=== PATIENT | female | born 1970 | race Caucasian/White ===

== ENCOUNTER 2019-09-30 11:33 | Outpatient (CLI) | payer MEDICARE, MEDICAID, SELFPAY ==
[2019-09-30 12:44] LABS: Basophils % 0.6 %; Eosinophils # 0.3 10^3/uL (0.0-0.8); Eosinophils % 3.9 %; Hematocrit 37.6 % (37.0-47.0); Hemoglobin 12.6 g/dL (11.5-15.3); Lymphocytes # 2.1 10^3/uL (0.8-4.8); Lymphocytes % 29.6 %; Mean Corpuscular HGB Conc 33.5 g/dL (30.0-36.0); Mean Corpuscular Hemoglobin 31.1 pg (28.0-34.0); Mean Corpuscular Volume 92.8 fL (81-99); Mean Platelet Volume 10.4 fL (7.4-10.4); Monocytes # 0.7 10^3/uL (0.2-0.9); Monocytes % 9.7 %; Neutrophils % 55.9 %; Nucleated Red Blood Cells % 0 %; Platelet Count 288 10^3/cmm (130-400); Red Blood Count 4.05 10^6/uL (4.1-5.3); Red Cell Distribution Width 12.7 % (12.1-15.1); White Blood Count 7.1 10^3/uL (4.0-10.0)
[2019-09-30 13:12] LABS: Alanine Aminotransferase 54 U/L (0-33); Albumin Level 4.3 g/dL (3.5-5.2); Alkaline Phosphatase 125 IU/L (35-105); Anion Gap 17.1 (5-19); Aspartate Amino Transferase 28 U/L (0-32); Blood Urea Nitrogen 10 mg/dL (6-20); C Reactive Protein 11.3 mg/L (0.0-4.9); Calcium 9.5 mg/dL (8.5-10.5); Carbon Dioxide 26 mmol/L (22-29); Chloride 103 mmol/L (98-107); Globulin 3.2 g/dL (1.3-4.6); Glomerular Filtration Rate 76.9 mL/min (90-130); Glucose 100 mg/dL (74-109); Potassium 4.1 mmol/L (3.5-5.1); Sodium 142 mmol/L (136-145); Total Bilirubin 0.2 mg/dL (0.15-1.2); Total Protein 7.5 g/dL (6.6-8.7); Vancomycin Trough 12.1 ug/mL (10-15)
[2019-09-30 14:33] LABS: Erythrocyte Sedimentation Rate 56 mm/hr (0-15)
== END 2019-09-30 11:34 | disposition home or self-care (01) ==
LOC: LAB 11:47
PROVIDERS: PCP Student in an Organized Health Care Education/Training Program; Visit Provider Internal Medicine Infectious Disease
DX: M86.172 Other acute osteomyelitis, left ankle and foot (principal); Z89.412 Acquired absence of left great toe
CPT/HCPCS: 80053; 80202; 85025; 85651; 86140

== ENCOUNTER 2019-10-08 18:31 | Outpatient (REF) | payer MEDICARE, MEDICAID, SELFPAY ==
[2019-10-08 19:12] LABS: Basophils % 0.4 %; Eosinophils # 0.3 10^3/uL (0.0-0.8); Eosinophils % 3.4 %; Hematocrit 41.3 % (37.0-47.0); Hemoglobin 13.8 g/dL (11.5-15.3); Lymphocytes % 26.4 %; Mean Corpuscular HGB Conc 33.4 g/dL (30.0-36.0); Mean Corpuscular Hemoglobin 31.3 pg (28.0-34.0); Mean Corpuscular Volume 93.7 fL (81-99); Mean Platelet Volume 10.4 fL (7.4-10.4); Monocytes # 0.6 10^3/uL (0.2-0.9); Neutrophils # 4.6 10^3/uL (1.8-7.7); Neutrophils % 61.4 %; Nucleated Red Blood Cells % 0 %; Platelet Count 379 10^3/cmm (130-400); Red Blood Count 4.41 10^6/uL (4.1-5.3); Red Cell Distribution Width 12.4 % (12.1-15.1); White Blood Count 7.5 10^3/uL (4.0-10.0)
[2019-10-08 19:54] LABS: Alanine Aminotransferase 27 U/L (0-33); Albumin Level 4.2 g/dL (3.5-5.2); Alkaline Phosphatase 112 IU/L (35-105); Anion Gap 18.7 (5-19); Aspartate Amino Transferase 23 U/L (0-32); Blood Urea Nitrogen 14 mg/dL (6-20); C Reactive Protein 23.3 mg/L (0.0-4.9); Calcium 9.5 mg/dL (8.5-10.5); Carbon Dioxide 24 mmol/L (22-29); Chloride 101 mmol/L (98-107); Globulin 3.3 g/dL (1.3-4.6); Glomerular Filtration Rate 76.9 mL/min (90-130); Potassium 4.7 mmol/L (3.5-5.1); Sodium 139 mmol/L (136-145); Total Bilirubin 0.2 mg/dL (0.15-1.2); Total Protein 7.5 g/dL (6.6-8.7); Vancomycin Trough 15.8 ug/mL (10-15)
[2019-10-08 20:31] LABS: Erythrocyte Sedimentation Rate 69 mm/hr (0-15)
[2019-10-09 09:06] LABS: Glucose 86 mg/dL (65-115)
== END 2019-10-08 18:32 | disposition home or self-care (01) ==
LOC: LAB 18:31
PROVIDERS: PCP Student in an Organized Health Care Education/Training Program; Visit Provider Specialist
DX: Z01.89 Encounter for other specified special examinations (principal)
CPT/HCPCS: 80053; 80202; 85025; 85651; 86140

== ENCOUNTER 2020-05-12 09:06 | Outpatient (CLI) | payer MEDICARE, MEDICAID, SELFPAY | END 2020-05-12 09:07 | disposition home or self-care (01) | LOC: WOUND 09:09 | PROVIDERS: PCP Student in an Organized Health Care Education/Training Program; Visit Provider Thoracic Surgery (Cardiothoracic Vascular Surgery) | DX: L98.498 Non-pressure chronic ulcer of skin of other sites with other specified severity (principal) | CPT/HCPCS: 11042 ==

== ENCOUNTER 2020-05-19 08:49 | Outpatient (CLI) | payer MEDICARE, MEDICAID, SELFPAY | END 2020-05-19 08:50 | disposition home or self-care (01) | LOC: WOUND 08:50 | PROVIDERS: PCP Student in an Organized Health Care Education/Training Program; Visit Provider Thoracic Surgery (Cardiothoracic Vascular Surgery) | DX: L98.491 Non-pressure chronic ulcer of skin of other sites limited to breakdown of skin (principal) | CPT/HCPCS: 11042 ==

== ENCOUNTER 2020-05-26 08:49 | Outpatient (CLI) | payer MEDICARE, MEDICAID, SELFPAY | END 2020-05-26 08:50 | disposition home or self-care (01) | LOC: WOUND 08:49 | PROVIDERS: PCP Student in an Organized Health Care Education/Training Program; Visit Provider Thoracic Surgery (Cardiothoracic Vascular Surgery) | DX: L98.491 Non-pressure chronic ulcer of skin of other sites limited to breakdown of skin (principal) | CPT/HCPCS: 11042 ==

== ENCOUNTER 2020-06-02 08:28 | Outpatient (CLI) | payer MEDICARE, MEDICAID, SELFPAY | END 2020-06-02 08:29 | disposition home or self-care (01) | LOC: WOUND 08:29 | PROVIDERS: PCP Student in an Organized Health Care Education/Training Program; Visit Provider Thoracic Surgery (Cardiothoracic Vascular Surgery) | DX: L98.492 Non-pressure chronic ulcer of skin of other sites with fat layer exposed (principal) | CPT/HCPCS: 11042 ==

== ENCOUNTER 2020-06-09 09:02 | Outpatient (CLI) | payer MEDICARE, MEDICAID, SELFPAY | END 2020-06-09 09:03 | disposition home or self-care (01) | LOC: WOUND 09:03 | PROVIDERS: PCP Student in an Organized Health Care Education/Training Program; Visit Provider Thoracic Surgery (Cardiothoracic Vascular Surgery) | DX: Z09 Encounter for follow-up examination after completed treatment for conditions other than malignant neoplasm (principal) | CPT/HCPCS: 99212 ==

== ENCOUNTER 2020-08-20 13:19 | Outpatient (CLI) | payer MEDICARE, MEDICAID, SELFPAY | END 2020-08-20 13:20 | disposition home or self-care (01) | LOC: WOUND 13:20 | PROVIDERS: PCP Student in an Organized Health Care Education/Training Program; Visit Provider Thoracic Surgery (Cardiothoracic Vascular Surgery) | DX: L98.498 Non-pressure chronic ulcer of skin of other sites with other specified severity (principal) | CPT/HCPCS: 11042; 99212 ==

== ENCOUNTER 2020-09-03 13:12 | Outpatient (CLI) | payer MEDICARE, MEDICAID, SELFPAY | END 2020-09-03 13:13 | disposition home or self-care (01) | LOC: WOUND 13:12 | PROVIDERS: PCP Student in an Organized Health Care Education/Training Program; Visit Provider Nurse Practitioner Family | DX: I73.9 Peripheral vascular disease, unspecified (principal); L98.492 Non-pressure chronic ulcer of skin of other sites with fat layer exposed | CPT/HCPCS: 11042 ==

== ENCOUNTER 2020-09-10 13:35 | Outpatient (CLI) | payer MEDICARE, MEDICAID, SELFPAY | END 2020-09-10 13:36 | disposition home or self-care (01) | LOC: WOUND 13:35 | PROVIDERS: PCP Student in an Organized Health Care Education/Training Program; Visit Provider Nurse Practitioner Family | DX: I73.9 Peripheral vascular disease, unspecified (principal); L98.492 Non-pressure chronic ulcer of skin of other sites with fat layer exposed | CPT/HCPCS: 99212 ==

== ENCOUNTER 2021-01-29 09:55 | Outpatient (CLI) | payer MEDICARE, MEDICAID, SELFPAY | END 2021-01-29 09:56 | disposition home or self-care (01) | LOC: WOUND 09:56 | PROVIDERS: PCP Student in an Organized Health Care Education/Training Program; Visit Provider Surgery | DX: Z09 Encounter for follow-up examination after completed treatment for conditions other than malignant neoplasm (principal); Z89.022 Acquired absence of left finger(s); Z89.021 Acquired absence of right finger(s) | CPT/HCPCS: G0463 ==

== ENCOUNTER → 2022-04-26 08:28 | Outpatient (BNVA) | payer MEDICARE, MEDICAID, SELFPAY | PROVIDERS: PCP Student in an Organized Health Care Education/Training Program; Visit Provider Nurse Practitioner Family | DX: L98.499 Non-pressure chronic ulcer of skin of other sites with unspecified severity (principal); M34.9 Systemic sclerosis, unspecified; I96 Gangrene, not elsewhere classified | CPT/HCPCS: 11042; 99213 ==

== ENCOUNTER → 2022-05-05 08:40 | Outpatient (BNVA) | payer MEDICARE, MEDICAID, SELFPAY | PROVIDERS: PCP Student in an Organized Health Care Education/Training Program; Visit Provider Nurse Practitioner Family | DX: L98.492 Non-pressure chronic ulcer of skin of other sites with fat layer exposed (principal) | CPT/HCPCS: 99212 ==

== ENCOUNTER → 2022-06-13 08:13 | Outpatient (BNVA) | payer MEDICARE, MEDICAID, SELFPAY | PROVIDERS: PCP Student in an Organized Health Care Education/Training Program; Visit Provider Thoracic Surgery (Cardiothoracic Vascular Surgery) | DX: I73.9 Peripheral vascular disease, unspecified (principal); L97.512 Non-pressure chronic ulcer of other part of right foot with fat layer exposed; M86.9 Osteomyelitis, unspecified; M06.9 Rheumatoid arthritis, unspecified | CPT/HCPCS: 97597; 99213; A6021 ==

== ENCOUNTER → 2022-06-20 08:59 | Outpatient (BNVA) | payer MEDICARE, MEDICAID, SELFPAY | PROVIDERS: PCP Student in an Organized Health Care Education/Training Program; Visit Provider Nurse Practitioner Family | DX: I73.9 Peripheral vascular disease, unspecified (principal); L97.512 Non-pressure chronic ulcer of other part of right foot with fat layer exposed; G62.9 Polyneuropathy, unspecified; I73.00 Raynaud's syndrome without gangrene | CPT/HCPCS: 11042; A6021 ==

== ENCOUNTER → 2022-06-27 09:09 | Outpatient (BNVA) | payer MEDICARE, MEDICAID, SELFPAY | PROVIDERS: PCP Student in an Organized Health Care Education/Training Program; Visit Provider Thoracic Surgery (Cardiothoracic Vascular Surgery) | DX: I73.9 Peripheral vascular disease, unspecified (principal); L97.512 Non-pressure chronic ulcer of other part of right foot with fat layer exposed; G62.9 Polyneuropathy, unspecified; I73.00 Raynaud's syndrome without gangrene | CPT/HCPCS: 97597; A6021 ==

== ENCOUNTER → 2022-07-04 09:26 | Outpatient (BNVA) | payer MEDICARE, MEDICAID, SELFPAY | PROVIDERS: PCP Student in an Organized Health Care Education/Training Program; Visit Provider Thoracic Surgery (Cardiothoracic Vascular Surgery) | DX: M34.9 Systemic sclerosis, unspecified (principal); L98.492 Non-pressure chronic ulcer of skin of other sites with fat layer exposed | CPT/HCPCS: 11043; 97597; A6021 ==

== ENCOUNTER → 2022-07-11 09:10 | Outpatient (BNVA) | payer MEDICARE, MEDICAID, SELFPAY | PROVIDERS: PCP Student in an Organized Health Care Education/Training Program; Visit Provider Thoracic Surgery (Cardiothoracic Vascular Surgery) | DX: M34.9 Systemic sclerosis, unspecified (principal); L98.492 Non-pressure chronic ulcer of skin of other sites with fat layer exposed | CPT/HCPCS: 11042; 97597; A6021 ==

== ENCOUNTER → 2022-07-18 09:30 | Outpatient (BNVA) | payer MEDICARE, MEDICAID, SELFPAY | PROVIDERS: PCP Student in an Organized Health Care Education/Training Program; Visit Provider Thoracic Surgery (Cardiothoracic Vascular Surgery) | DX: I96 Gangrene, not elsewhere classified (principal); M34.89 Other systemic sclerosis; L98.492 Non-pressure chronic ulcer of skin of other sites with fat layer exposed | CPT/HCPCS: 97597 ==

== ENCOUNTER → 2022-07-25 08:54 | Outpatient (BNVA) | payer MEDICARE, MEDICAID, SELFPAY | PROVIDERS: PCP Student in an Organized Health Care Education/Training Program; Visit Provider Nurse Practitioner Family | DX: M34.9 Systemic sclerosis, unspecified (principal); L98.492 Non-pressure chronic ulcer of skin of other sites with fat layer exposed | CPT/HCPCS: 11042; A6021 ==

== ENCOUNTER → 2022-08-01 09:16 | Outpatient (BNVA) | payer MEDICARE, MEDICAID, SELFPAY | PROVIDERS: PCP Student in an Organized Health Care Education/Training Program; Visit Provider Nurse Practitioner Family | DX: I96 Gangrene, not elsewhere classified (principal); L98.492 Non-pressure chronic ulcer of skin of other sites with fat layer exposed; M34.89 Other systemic sclerosis | CPT/HCPCS: 11042 ==

== ENCOUNTER 2022-08-08 13:52 | Outpatient (CLI) | payer MEDICARE, MEDICAID, SELFPAY ==
--- NOTE | 2022-08-08 14:06 | XR_ITS ---
WS: [id number] EXAMINATION: XR hand LT min 3V* [id number] REASON FOR EXAM: S61.409D - Unspecified open wound of unspecified hand, lorenz... COMPARISON: None available. ORDER DATE: 08/08/2022 2:07 PM FINDINGS/IMPRESSION: There is amputation at the level of the proximal fifth metacarpal with normal appearance of the corti suhail surface of the remaining small segment of fifth metacarpal. There is patchy sclerotic pattern in the lunate which suggests possible osteonecrosis, Kienbock's dis ease.. There are no specific soft tissue abnormalities.
== END 2022-08-08 13:53 | disposition home or self-care (01) ==
LOC: RAD 13:57
PROVIDERS: PCP Family Medicine; Visit Provider Nurse Practitioner Family
DX: S61.402D Unspecified open wound of left hand, subsequent encounter (principal); L94.0 Localized scleroderma [morphea]; I96 Gangrene, not elsewhere classified; L98.492 Non-pressure chronic ulcer of skin of other sites with fat layer exposed; Z89.012 Acquired absence of left thumb; X58.XXXD Exposure to other specified factors, subsequent encounter
CPT/HCPCS: 73130; 99213

== ENCOUNTER → 2022-08-15 09:44 | Outpatient (BNVA) | payer MEDICARE, MEDICAID, SELFPAY | PROVIDERS: PCP Family Medicine; Visit Provider Nurse Practitioner Family | DX: M34.9 Systemic sclerosis, unspecified (principal); I96 Gangrene, not elsewhere classified; L98.492 Non-pressure chronic ulcer of skin of other sites with fat layer exposed | CPT/HCPCS: 11042 ==

== ENCOUNTER → 2022-08-22 09:31 | Outpatient (BNVA) | payer MEDICARE, MEDICAID, SELFPAY | PROVIDERS: PCP Family Medicine; Visit Provider Thoracic Surgery (Cardiothoracic Vascular Surgery) | DX: M34.9 Systemic sclerosis, unspecified (principal); L98.492 Non-pressure chronic ulcer of skin of other sites with fat layer exposed | CPT/HCPCS: 97597 ==

== ENCOUNTER → 2022-09-06 09:21 | Outpatient (BNVA) | payer MEDICARE, MEDICAID, SELFPAY | PROVIDERS: PCP Family Medicine; Visit Provider Thoracic Surgery (Cardiothoracic Vascular Surgery) | DX: M34.9 Systemic sclerosis, unspecified (principal); L98.492 Non-pressure chronic ulcer of skin of other sites with fat layer exposed | CPT/HCPCS: 97597 ==

== ENCOUNTER → 2022-09-14 08:57 | Outpatient (BNVA) | payer MEDICARE, MEDICAID, SELFPAY | PROVIDERS: PCP Family Medicine; Visit Provider Thoracic Surgery (Cardiothoracic Vascular Surgery) | DX: Z09 Encounter for follow-up examination after completed treatment for conditions other than malignant neoplasm (principal) | CPT/HCPCS: 99212 ==

== ENCOUNTER → 2023-03-08 09:03 | Outpatient (BNVA) | payer MEDICARE, MEDICAID, SELFPAY | PROVIDERS: PCP Family Medicine; Visit Provider Thoracic Surgery (Cardiothoracic Vascular Surgery) | DX: I96 Gangrene, not elsewhere classified (principal); L94.0 Localized scleroderma [morphea]; L98.492 Non-pressure chronic ulcer of skin of other sites with fat layer exposed | CPT/HCPCS: 11042; 87070; 87077; 87186; 99213 ==

== ENCOUNTER → 2023-03-15 08:57 | Outpatient (BNVA) | payer MEDICARE, MEDICAID, SELFPAY | PROVIDERS: PCP Family Medicine; Visit Provider Thoracic Surgery (Cardiothoracic Vascular Surgery) | DX: T81.31XD Disruption of external operation (surgical) wound, not elsewhere classified, subsequent encounter (principal); Y83.8 Other surgical procedures as the cause of abnormal reaction of the patient, or of later complication, without mention of misadventure at the time of the procedure | CPT/HCPCS: 11042 ==

== ENCOUNTER → 2023-03-22 08:38 | Outpatient (BNVA) | payer MEDICARE, MEDICAID, SELFPAY | PROVIDERS: PCP Family Medicine; Visit Provider Thoracic Surgery (Cardiothoracic Vascular Surgery) | DX: I96 Gangrene, not elsewhere classified (principal); M34.89 Other systemic sclerosis; T81.31XD Disruption of external operation (surgical) wound, not elsewhere classified, subsequent encounter; Y83.8 Other surgical procedures as the cause of abnormal reaction of the patient, or of later complication, without mention of misadventure at the time of the procedure | CPT/HCPCS: 97597 ==

== ENCOUNTER → 2023-08-11 09:02 | Outpatient (BNVA) | payer MEDICARE, MEDICAID, SELFPAY | PROVIDERS: PCP Family Medicine; Visit Provider Thoracic Surgery (Cardiothoracic Vascular Surgery) | DX: I96 Gangrene, not elsewhere classified (principal); L94.0 Localized scleroderma [morphea] | CPT/HCPCS: 97597; 99213; A6248 ==

== ENCOUNTER → 2023-09-08 14:52 | Outpatient (BNVA) | payer MEDICARE, MEDICAID, SELFPAY | PROVIDERS: PCP Family Medicine; Visit Provider Thoracic Surgery (Cardiothoracic Vascular Surgery) | DX: M34.9 Systemic sclerosis, unspecified (principal); I96 Gangrene, not elsewhere classified; L98.492 Non-pressure chronic ulcer of skin of other sites with fat layer exposed | CPT/HCPCS: 11042; A6021 ==

== ENCOUNTER → 2023-09-22 08:00 | Outpatient (BNVA) | payer MEDICARE, MEDICAID, SELFPAY | PROVIDERS: PCP Family Medicine; Visit Provider Thoracic Surgery (Cardiothoracic Vascular Surgery) | DX: I96 Gangrene, not elsewhere classified (principal); M34.89 Other systemic sclerosis | CPT/HCPCS: 11042 ==

== ENCOUNTER → 2023-10-06 08:06 | Outpatient (BNVA) | payer MEDICARE, MEDICAID, SELFPAY | PROVIDERS: PCP Family Medicine; Visit Provider Thoracic Surgery (Cardiothoracic Vascular Surgery) | DX: I96 Gangrene, not elsewhere classified (principal); L94.0 Localized scleroderma [morphea] | CPT/HCPCS: 11042 ==

== ENCOUNTER → 2023-10-13 07:59 | Outpatient (BNVA) | payer MEDICARE, MEDICAID, SELFPAY | PROVIDERS: PCP Family Medicine; Visit Provider Thoracic Surgery (Cardiothoracic Vascular Surgery) | DX: I96 Gangrene, not elsewhere classified (principal); M34.9 Systemic sclerosis, unspecified | CPT/HCPCS: 97597 ==

== ENCOUNTER 2023-11-23 06:00 | Outpatient (CLI) | payer MEDICARE, MEDICAID, SELFPAY | END 2023-11-23 23:59 | disposition home or self-care (01) | LOC: SOT 11-24 07:55 | PROVIDERS: PCP Family Medicine; Visit Provider Student in an Organized Health Care Education/Training Program | DX: Z46.89 Encounter for fitting and adjustment of other specified devices (principal); L98.492 Non-pressure chronic ulcer of skin of other sites with fat layer exposed | CPT/HCPCS: 97597; 97760; 99213; A6021; A6248; A6446; L3923 ==

== ENCOUNTER → 2023-11-30 07:59 | Outpatient (BNVA) | payer MEDICARE, MEDICAID, SELFPAY | PROVIDERS: PCP Family Medicine; Visit Provider Thoracic Surgery (Cardiothoracic Vascular Surgery) | DX: T81.31XD Disruption of external operation (surgical) wound, not elsewhere classified, subsequent encounter (principal); Y83.8 Other surgical procedures as the cause of abnormal reaction of the patient, or of later complication, without mention of misadventure at the time of the procedure | CPT/HCPCS: 97597; A6021 ==

== ENCOUNTER → 2023-12-07 08:42 | Outpatient (BNVA) | payer MEDICARE, MEDICAID, SELFPAY | PROVIDERS: PCP Family Medicine; Visit Provider Thoracic Surgery (Cardiothoracic Vascular Surgery) | DX: I96 Gangrene, not elsewhere classified (principal); T81.31XD Disruption of external operation (surgical) wound, not elsewhere classified, subsequent encounter; Y83.8 Other surgical procedures as the cause of abnormal reaction of the patient, or of later complication, without mention of misadventure at the time of the procedure | CPT/HCPCS: 97597 ==

== ENCOUNTER → 2023-12-14 09:55 | Outpatient (BNVA) | payer MEDICARE, MEDICAID, SELFPAY | PROVIDERS: PCP Family Medicine; Visit Provider Thoracic Surgery (Cardiothoracic Vascular Surgery) | DX: I96 Gangrene, not elsewhere classified (principal); T81.31XD Disruption of external operation (surgical) wound, not elsewhere classified, subsequent encounter; Y83.8 Other surgical procedures as the cause of abnormal reaction of the patient, or of later complication, without mention of misadventure at the time of the procedure | CPT/HCPCS: 97597; A6021 ==

== ENCOUNTER 2024-01-18 09:27 | Outpatient (RCR) | payer MEDICARE, MEDICAID, SELFPAY | END 2024-02-02 23:59 | disposition home or self-care (01) | LOC: SOT 09:27 | PROVIDERS: Visit Provider Physician Assistant | DX: Z47.81 Encounter for orthopedic aftercare following surgical amputation (principal); Z89.021 Acquired absence of right finger(s) | CPT/HCPCS: 97022; 97110; 97140; 97165; 97530 ==

== ENCOUNTER 2024-02-03 06:00 | Outpatient (RCR) | payer MEDICARE, MEDICAID, SELFPAY | END 2024-03-03 23:59 | disposition home or self-care (01) | LOC: SOT 06:00 | PROVIDERS: PCP Internal Medicine; Visit Provider Physician Assistant | DX: M86.641 Other chronic osteomyelitis, right hand (principal) | CPT/HCPCS: 97022; 97110; 97140 ==

== ENCOUNTER 2024-02-08 09:47 | Outpatient (CLI) | payer MEDICARE, MEDICAID, SELFPAY ==
--- NOTE | 2024-02-08 09:53 | XR_ITS ---
WS: [id number] XR hand LT 2V [id number] REASON FOR EXAM: raynaud's dz. hx of osteomyelitis FINDINGS: Amputation of the distal most distal phalanx of the thumb and index finger. Amputation of the distal middle finger at the level of the base of the proximal phalanx. Amputation of the fifth finger at the level of the base of the metacarpal. There is mild narrowing with subchondral sclerosis in the 3 joints of the thumb. There is sclerosis and cystic change in the lunate. The left hand is unchanged compared to 08/08/2022. XR/XR hand LT 2V [id number] IMPRESSION: Stable left hand with multiple previous amputations. 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 Stable abnormal lunate.
== END 2024-02-08 09:48 | disposition home or self-care (01) ==
LOC: RAD 09:49
PROVIDERS: PCP Internal Medicine; Visit Provider Thoracic Surgery (Cardiothoracic Vascular Surgery)
DX: I73.00 Raynaud's syndrome without gangrene (principal); Z89.012 Acquired absence of left thumb; Z89.022 Acquired absence of left finger(s); M93.1 Kienbock's disease of adults; M85.60 Other cyst of bone, unspecified site
CPT/HCPCS: 73120; 99213

== ENCOUNTER 2024-05-15 08:49 | Outpatient (RCR) | payer MEDICARE, MEDICAID, SELFPAY | END 2024-06-03 23:59 | disposition home or self-care (01) | LOC: SOT 08:49 | PROVIDERS: Visit Provider Physician Assistant | DX: L03.012 Cellulitis of left finger (principal) | CPT/HCPCS: 97022; 97110; 97140; 97165; 97530 ==

== ENCOUNTER → 2024-05-22 13:00 | Outpatient (BNVA) | payer MEDICARE, MEDICAID, SELFPAY | PROVIDERS: Visit Provider Thoracic Surgery (Cardiothoracic Vascular Surgery) | DX: L98.491 Non-pressure chronic ulcer of skin of other sites limited to breakdown of skin (principal) | CPT/HCPCS: 97597; 99213; A6021 ==

== ENCOUNTER 2024-05-29 11:36 | Outpatient (CLI) | payer MEDICARE, MEDICAID, SELFPAY ==
--- NOTE | 2024-05-29 11:43 | XRR_ITS ---
PROCEDURE INFORMATION: Exam: XR Left Finger(s) Exam date and time: 05/29/2024 11:56 AM Age: 53 years old Clinical indication: Condition or disease; Other: Non healing ulcer; Prior surgery; Surgery date: 6+ months; Surgery type: 5th digit removed 2020; Additional info: Non-healing ulcer left hand 2nd digit(index), increased pain TECHNIQUE: Imaging protocol: Radiologic exam of the left fingers. Views: Minimum 2 views. COMPARISON: CR XR hand LT 2V [id number] 02/08/2024 10:05 AM FINDINGS: Bones/joints: The finger is in partial flexion which limits evaluation of the joint spaces. No evidence for osteomyelitis or other acute abnormality. Soft tissues: There is a soft tissue defect along the posterior margin of the index finger at the level of the PIP joint. No radiopaque foreign body. XR/XR finger LT min 2V [id number] IMPRESSION: No evidence for osteomyelitis. Soft tissue ulceration is seen at the PIP joint level dorsally.
--- NOTE | 2024-05-29 11:43 | XRR_ITS ---
PROCEDURE INFORMATION: Exam: XR Right Finger(s) Exam date and time: 05/29/2024 11:56 AM Age: 53 years old Clinical indication: Condition or disease; Other: Non healing ulcer; Additional info: Non-healing ulcer right first digit(thumb), bone exposure TECHNIQUE: Imaging protocol: Radiologic exam of the right fingers. Views: Minimum 2 views. COMPARISON: No relevant prior studies available. FINDINGS: Bones/joints: There is absence of the distal phalanx of the thumb. No evidence for osteomyelitis or other acute abnormality. Visualized joint spaces are unremarkable. Soft tissues: No radiopaque foreign body. XR/XR finger RT min 2V [id number] IMPRESSION: No acute findings.
== END 2024-05-29 11:37 | disposition home or self-care (01) ==
PROVIDERS: Visit Provider Thoracic Surgery (Cardiothoracic Vascular Surgery)
DX: S61.001A Unspecified open wound of right thumb without damage to nail, initial encounter (principal); S61.200A Unspecified open wound of right index finger without damage to nail, initial encounter; I73.00 Raynaud's syndrome without gangrene
CPT/HCPCS: 73140; 87070; 97597

== ENCOUNTER → 2024-06-07 07:52 | Outpatient (BNVA) | payer MEDICARE, MEDICAID, SELFPAY | PROVIDERS: Visit Provider Thoracic Surgery (Cardiothoracic Vascular Surgery) | DX: S61.001D Unspecified open wound of right thumb without damage to nail, subsequent encounter; S61.201D Unspecified open wound of left index finger without damage to nail, subsequent encounter; S91.105D Unspecified open wound of left lesser toe(s) without damage to nail, subsequent encounter; X58.XXXD Exposure to other specified factors, subsequent encounter; I73.01 Raynaud's syndrome with gangrene | CPT/HCPCS: 97597 ==

== ENCOUNTER → 2024-06-14 08:13 | Outpatient (BNVA) | payer MEDICARE, MEDICAID, SELFPAY | PROVIDERS: Visit Provider Thoracic Surgery (Cardiothoracic Vascular Surgery) | DX: I96 Gangrene, not elsewhere classified (principal); L94.0 Localized scleroderma [morphea]; L98.491 Non-pressure chronic ulcer of skin of other sites limited to breakdown of skin; L97.521 Non-pressure chronic ulcer of other part of left foot limited to breakdown of skin | CPT/HCPCS: 97597; A6021; A6248 ==

== ENCOUNTER → 2024-06-18 13:10 | Outpatient (BNVA) | payer MEDICARE, MEDICAID, SELFPAY | PROVIDERS: Visit Provider Thoracic Surgery (Cardiothoracic Vascular Surgery) | DX: I96 Gangrene, not elsewhere classified (principal); L94.0 Localized scleroderma [morphea]; L97.521 Non-pressure chronic ulcer of other part of left foot limited to breakdown of skin; L98.491 Non-pressure chronic ulcer of skin of other sites limited to breakdown of skin | CPT/HCPCS: 97597; A6021 ==

== ENCOUNTER → 2024-06-28 08:00 | Outpatient (BNVA) | payer MEDICARE, MEDICAID, SELFPAY | PROVIDERS: Visit Provider Thoracic Surgery (Cardiothoracic Vascular Surgery) | DX: I96 Gangrene, not elsewhere classified (principal); L94.0 Localized scleroderma [morphea]; L98.491 Non-pressure chronic ulcer of skin of other sites limited to breakdown of skin; L97.521 Non-pressure chronic ulcer of other part of left foot limited to breakdown of skin | CPT/HCPCS: 97597 ==

== ENCOUNTER → 2024-07-05 08:00 | Outpatient (BNVA) | payer MEDICARE, MEDICAID, SELFPAY | PROVIDERS: Visit Provider Thoracic Surgery (Cardiothoracic Vascular Surgery) | DX: I96 Gangrene, not elsewhere classified (principal); L94.0 Localized scleroderma [morphea]; L98.491 Non-pressure chronic ulcer of skin of other sites limited to breakdown of skin; L97.521 Non-pressure chronic ulcer of other part of left foot limited to breakdown of skin; L84 Corns and callosities | CPT/HCPCS: 11055; 97597 ==

== ENCOUNTER → 2024-07-10 10:35 | Outpatient (BNVA) | payer MEDICARE, MEDICAID, SELFPAY | PROVIDERS: Visit Provider Podiatrist Foot & Ankle Surgery | DX: M79.672 Pain in left foot (principal); M86.172 Other acute osteomyelitis, left ankle and foot; I73.00 Raynaud's syndrome without gangrene; M20.42 Other hammer toe(s) (acquired), left foot | CPT/HCPCS: 73630; 97597; 99204; A6248 ==

== ENCOUNTER 2024-07-15 07:26 | Day surgery (SDC) | payer MEDICARE, MEDICAID, SELFPAY ==
[2024-07-15] VITALS (7 sets, daily range): BP systolic 84–119; BP diastolic 60–80; PULSE 81–93; RESP 18–20; TEMP 36.9–37.1; O2SAT 93–98; BMI 25.0
[2024-07-15] MEDS: gabapentin 300 mg Capsule PO (08:10)
[2024-07-15] MEDS: acetaminophen 1,000 MG/100 ML PIGGYBACK 400 MG IV (09:02)
[2024-07-15] MEDS: sodium chloride 0.9% 1,000 ML 30 ML IV (09:06)
--- NOTE | 2024-07-15 09:08 | ANES.PREANE2 ---
Pre-Anesthetic Assessment Height/Weight: Height 5 ft 8 in Weight 165 lb Temp Pulse Resp BP Pulse Ox O2 Del Method 98.5 F 87 18 119/72 94 Room Air 07/15/24 07:48 07/15/24 07:48 07/15/24 07:48 07/15/24 07:48 07/15/24 07:48 07/15/24 07:48 Preop Diagnosis: Osteomyelitis Operation Date: 07/15/24 09:05 Proposed Procedures p Left foot second toe amputation(Left) - VISHNU MccormackM Was Beta Trinidad taken within 24 hours: N/A Was Clonidine taken within 24 hours: N/A Last intake: Intake Last Liquid Date 07/14/24 Last Liquid Time 23:59 Last Solid Date 07/14/24 Last Solid Time 19:30 Social No alcohol and No tobacco Exam alert, oriented x 3 and regular rate & rhythm Diminished breath sounds bilaterally Airway Submandibular: within normal limits Cervical ROM: within normal limits Mallampati: Class III Dentition: full Comments: Comments: Limited mouth opening Anesthetic Plan ASA status: 3 Anesthesia: MAC Other: No prior issues with anesthesia NPO since yesterday Patient has severe scleredema, multiple finger amputations Restrictive lung disease from her scleredema GERD on Protonix Chronic pain, takes chronic oxycodone daily Patient is able to perform ADLs Plan for MAC anesthetic with local via surgeon Medications/Allergies Home Medications Medication Instructions Recorded Confirmed Last Taken Type albuterol sulfate 90 mcg/actuation See Rx Instructions .Route 07/11/24 07/11/24 Unknown History aerosol inhaler .COMPLEX sob alprazolam 0.25 mg tablet 0.25 mg PO PRN 07/11/24 07/11/24 07/14/24 History brexpiprazole 2 mg tablet (Rexulti) 2 mg PO 1XD 07/11/24 07/11/24 07/15/24 History cilostazol 100 mg tablet 100 mg PO 2XD 07/11/24 07/11/24 07/15/24 History colestipol 1 gram tablet 1 g PO BID high cholesterol 07/11/24 07/11/24 07/11/24 History ergocalciferol (vitamin D2) 1,250 See Rx Instructions .Route 07/11/24 07/11/24 07/07/24 History mcg (50,000 unit) capsule (Vitamin .COMPLEX vit D2) famotidine 40 mg tablet 40 mg PO 2XD 07/11/24 07/11/24 07/15/24 History fluticasone furoate 200 See Rx Instructions .Route .COMPLEX 07/11/24 07/15/24 07/15/24 History mcg-vilanterol 25 mcg/dose inhalation powder (Breo Ellipta) gabapentin 300 mg capsule 300 mg PO QID 07/11/24 07/11/24 07/11/24 History mupirocin 2 % topical ointment 2 applic topical 3XD 07/11/24 07/11/24 07/11/24 History mycophenolate mofetil 500 mg tablet 1,500 mg PO 2XD 07/11/24 07/11/24 07/15/24 History nifedipine 60 mg tablet,extended 120 mg PO 1XD 07/11/24 07/11/24 07/10/24 History release 24 hr nintedanib 150 mg capsule (Ofev) 150 mg PO 2XD 07/11/24 07/11/24 07/11/24 History oxycodone 15 mg tablet 15 mg PO PRN 07/11/24 07/11/24 07/15/24 History oxycodone 20 mg tablet,crush 20 mg PO 2XD 07/11/24 07/11/24 07/14/24 History resistant,extended release 12 hr (OxyContin) pantoprazole 40 mg tablet,delayed 40 mg PO 2XD 07/11/24 07/11/24 07/15/24 History release paroxetine HCl 30 mg tablet 30 mg PO 1XD 07/11/24 07/11/24 07/15/24 History pentoxifylline 400 mg 400 mg PO 3XD 07/11/24 07/11/24 07/11/24 History tablet,extended release trazodone 50 mg tablet 100 mg PO 1XD 07/11/24 07/11/24 07/14/24 History Allergies Allergy/AdvReac Type Severity Reaction Status Date / Time ceftriaxone [From Rocephin] Allergy ALGY-Rash Verified 07/15/24 07:45 piperacillin [From Zosyn] Allergy ALGY-Rash Verified 07/15/24 07:45 tazobactam [From Zosyn] Allergy ALGY-Rash Verified 07/15/24 07:45 vancomycin Allergy ALGY-Rash Verified 07/15/24 07:45 Current Medications Generic Name Dose Route Start Last Admin Trade Name Johnq PRN Reason Stop Dose Admin Sodium Chloride 1,000 mls @ 30 mls/hr 07/15/24 07:45 07/15/24 09:06 Sodium Chloride 0.9% IV 07/16/24 07:44 30 mls/hr .Q24H LOUISE Administration PFSH Anesthesia Social History Smoking and tobacco/nicotine status: unknown if used tobacco/nicotine Data Anesthesia Cardiac Studies: No Data to Display
[2024-07-15] MEDS: clindamycin 600 MG/50 ML PREMIX 100 MG IV (10:11)
[2024-07-15] MEDS: BUPivacaine 0.5% INJ 10 mL 30 ML INJECTION (10:20)
--- NOTE | 2024-07-15 10:49 | P.BOP_ITS ---
Date of procedure: 07/15/2024 Surgeon name: Jey FrankPDianne Editor [employer](s) name(s): Freddy Procedure(s) performed: Left foot second digit amputation Description of findings: Osteomyelitis left second digit Estimated blood loss: 2 cc Tourniquet time: 10 minutes Specimen(s) removed: Left foot second toe Post-operative diagnosis: Osteomyelitis left foot second digit
--- NOTE | 2024-07-15 10:50 | P.OP_ITS ---
Operative Report Date of procedure: July 15, 2024 Surgeon: Vinay Soto DPM Procedure: Date of procedure: 07/15/2024 Pre-op diagnosis: Osteomyelitis left foot second digit Post-op diagnosis: Same Post-op findings: Osteomyelitis left second digit Procedure done: Left foot second digit amputation CPT 26596 Implants: None Specimens removed: Left foot second toe Surgeon: Dr. Vinay Soto DPM Jewish History Professor: ABDIRASHID Estimated blood loss: 2 cc Tourniquet time: 10 minutes Complications: None Patient is a 53-year-old female that has a history of left foot second toe osteomyelitis and chronic ulceration. The patient has had the aforementioned chief complaint for some time. Conservative treatment measures have been attempted and the patient has opted for surgical intervention at this time. A lengthy discussion regarding the procedure, including risks and complications has been had with the patient and is noted in the recent clinic note. Written and verbal consent have been obtained. All patient questions have been answered to the patient?s satisfaction. No written or verbal guarantees have been given or implied. The patient has been NPO since midnight. The history has been reviewed and the history and physical is current. The signed consent was confirmed and placed in the patient chart. Patient imaging has been reviewed and is consistent with the diagnosis. Under mild sedation, the patient was brought into the operating room and placed on the table in the supine position. IV antibiotics were given by the anesthesia team as preoperative surgical prophylaxis. IV sedation was then performed by the anesthesiateam. A pneumatic tourniquet was then placed about the left ankle. The operative extremity was then prepped and draped in the usual fashion. The extremity was then elevated and exsanguinated before the tourniquet was inflated to 250 mmHg. After inflation, the following procedure was then performed. Attention was directed to the left foot where a fishmouth incision was made at the base of the second toe. Dissection was carried out to the level of the second metatarsophalangeal joint. The second digit was dissected from the foot by releasing the second metatarsal phalangeal joint capsule. The toe was passed from the operative field be sent as specimen. The remaining tissue appeared healthy and viable in nature. The site was irrigated with copious amounts sterile saline before attention was directed to closure. Amputation site was closed with 4-0 nylon in simple interrupted fashion. Tourniquet was let down and good hyperemic response was noted to all remaining digits of the left foot. Incision site was dressed with Xeroform, 4 x 4 gauze, Kerlix, Marquise. The patient tolerated the procedure and anesthesia well and without complication. The patient was transported from the operating room to the recovery room with vital signs stable and vascular status intact to all digits of the left foot. The patient was given both written and verbal instructions to remain weightbearing as tolerated in postop shoe to the operative extremity, to keep dressings/splint clean, dry and intact and to take pain medication as directed. The patient will follow-up in the outpatient setting at their [facility] appointment. The patient was discharged with my personal number and was instructed to call if any questions or issues should arise. They were discharged home once anesthesia criteria was met.
--- NOTE | 2024-07-15 12:05 | ANE.PACU2 ---
Inpatient post-anesthesia follow up: Airway intact: Yes Vital signs: Temperature 98.8 F Pulse Rate 84 Respiratory Rate 18 Blood Pressure 105/61 Pulse Oximetry 96 Oxygen Delivery Me thod Room Air Oxygen Flow Rate Fraction of Inspir ed Oxygen Hydration adequate: Yes Nausea and vomiting: No Pain level: 1 Mental status: Baseline
== END 2024-07-15 12:05 | disposition home or self-care (01) ==
PROVIDERS: PCP Family Medicine; Visit Provider Podiatrist Foot & Ankle Surgery
PROC: (CPT 28820; principal; 2024-07-15 08:55)
DX: M86.8X7 Other osteomyelitis, ankle and foot (principal); K21.9 Gastro-esophageal reflux disease without esophagitis; G89.29 Other chronic pain; Z79.891 Long term (current) use of opiate analgesic
CPT/HCPCS: 28820; 88305; 88311; J0131; J2250; J2704; J3010; J3490; J7030

== ENCOUNTER → 2024-07-22 14:45 | Outpatient (BNVA) | payer MEDICARE, MEDICAID, SELFPAY | PROVIDERS: PCP Family Medicine; Visit Provider Podiatrist Foot & Ankle Surgery | DX: I73.00 Raynaud's syndrome without gangrene; M20.42 Other hammer toe(s) (acquired), left foot; M86.372 Chronic multifocal osteomyelitis, left ankle and foot | CPT/HCPCS: 99213 ==

== ENCOUNTER 2024-07-26 10:23 | Outpatient (CLI) | payer MEDICARE, MEDICAID, SELFPAY ==
--- NOTE | 2024-07-26 10:26 | XR_ITS ---
WS: [id number] Exam: XR hand RT min 3V* [id number] Date/Time of Exam: 07/26/2024 10:43 AM Reason For Exam: R/O osteomyelitis Right Hand Comparison 05/29/2024. No acute fracture or bone destruction identified. There are amputations involving the first through t he fourth rays of the hand. Almost complete amputation of the second ray at the level of the proximal metacarpal. No soft tissue foreign bodies are identified. IMPRESSION1. No sign of acute bone destruction or fracture. 2. Multiple amputations involving the first through the fourth rays of the RIGHT hand. 3. Bony sclerosis of the lunate of uncertain etiology.
--- NOTE | 2024-07-26 10:26 | XR_ITS ---
WS: [id number] Exam: XR elbow RT min 3V* [id number] Date/Time of Exam: 07/26/2024 10:43 AM Reason For Exam: R/O osteomyelitis Right Elbow No acute fracture or bone destruction identified. The joints are preserved. Soft tissue calcification along the radial head. No joint effusion. XR/XR elbow RT min 3V* [id number] IMPRESSION: 1. No fracture or bone destruction. No joint effusion.
== END 2024-07-26 10:24 | disposition home or self-care (01) ==
LOC: RAD 10:25
PROVIDERS: PCP Family Medicine; Visit Provider Thoracic Surgery (Cardiothoracic Vascular Surgery)
DX: M86.9 Osteomyelitis, unspecified (principal); Z89.021 Acquired absence of right finger(s); M93.1 Kienbock's disease of adults; L94.0 Localized scleroderma [morphea]; L98.491 Non-pressure chronic ulcer of skin of other sites limited to breakdown of skin
CPT/HCPCS: 73080; 73130; 87070; 87075; 87205; 97597

== ENCOUNTER → 2024-07-30 12:58 | Outpatient (BNVA) | payer MEDICARE, MEDICAID, SELFPAY | PROVIDERS: PCP Family Medicine; Visit Provider Thoracic Surgery (Cardiothoracic Vascular Surgery) | DX: I96 Gangrene, not elsewhere classified (principal); L94.0 Localized scleroderma [morphea]; L98.491 Non-pressure chronic ulcer of skin of other sites limited to breakdown of skin | CPT/HCPCS: 97597; 99213 ==

== ENCOUNTER → 2024-08-14 12:54 | Outpatient (BNVA) | payer MEDICARE, MEDICAID, SELFPAY | PROVIDERS: PCP Family Medicine; Visit Provider Thoracic Surgery (Cardiothoracic Vascular Surgery) | DX: L94.0 Localized scleroderma [morphea] (principal); I96 Gangrene, not elsewhere classified; L98.491 Non-pressure chronic ulcer of skin of other sites limited to breakdown of skin | CPT/HCPCS: 97597 ==

== ENCOUNTER → 2024-08-23 08:14 | Outpatient (BNVA) | payer MEDICARE, MEDICAID, SELFPAY | PROVIDERS: PCP Family Medicine; Visit Provider Thoracic Surgery (Cardiothoracic Vascular Surgery) | DX: I96 Gangrene, not elsewhere classified (principal); L94.0 Localized scleroderma [morphea]; L98.491 Non-pressure chronic ulcer of skin of other sites limited to breakdown of skin; L98.492 Non-pressure chronic ulcer of skin of other sites with fat layer exposed; Z09 Encounter for follow-up examination after completed treatment for conditions other than malignant neoplasm | CPT/HCPCS: 11042; 97597 ==

== ENCOUNTER 2024-08-30 10:24 | Outpatient (CLI) | payer MEDICARE, MEDICAID, SELFPAY ==
--- NOTE | 2024-08-30 10:26 | XR_ITS ---
WS: [id number] LEFT ELBOW: 3 VIEW(S) TECHNIQUE: AP, oblique and lateral. HISTORY: reopening of wound with hx. of osteomyelitis COMPARISON: None available. No acute fracture identified. Irregularity along the articular surface of the radial head consistent with an old fracture. Osteophyte along the medial ulna. Minimal distention of the anterior joint capsule. No bone destruction. No soft tissue abnormality. XR/XR elbow LT min 3V* [id number] IMPRESSION: 1. The soft tissue ulceration tract is not identified radiographically. 2. No destructive bone lesions. 3. Remote fracture radial head.
== END 2024-08-30 10:25 | disposition home or self-care (01) ==
LOC: RAD 10:25
PROVIDERS: PCP Family Medicine; Visit Provider Thoracic Surgery (Cardiothoracic Vascular Surgery)
DX: L89.023 Pressure ulcer of left elbow, stage 3 (principal); M25.722 Osteophyte, left elbow; S52.122D Displaced fracture of head of left radius, subsequent encounter for closed fracture with routine healing; X58.XXXD Exposure to other specified factors, subsequent encounter; M34.9 Systemic sclerosis, unspecified; L89.013 Pressure ulcer of right elbow, stage 3
CPT/HCPCS: 11042; 73080; 97597; A6021

== ENCOUNTER → 2024-09-06 08:07 | Outpatient (BNVA) | payer MEDICARE, MEDICAID, SELFPAY | PROVIDERS: PCP Family Medicine; Visit Provider Thoracic Surgery (Cardiothoracic Vascular Surgery) | DX: I96 Gangrene, not elsewhere classified (principal); L94.0 Localized scleroderma [morphea]; L98.491 Non-pressure chronic ulcer of skin of other sites limited to breakdown of skin; L89.013 Pressure ulcer of right elbow, stage 3 | CPT/HCPCS: 97597; A6210 ==

== ENCOUNTER → 2024-09-18 07:58 | Outpatient (BNVA) | payer MEDICARE, MEDICAID, SELFPAY | PROVIDERS: PCP Family Medicine; Visit Provider Thoracic Surgery (Cardiothoracic Vascular Surgery) | DX: L94.0 Localized scleroderma [morphea] (principal); L98.491 Non-pressure chronic ulcer of skin of other sites limited to breakdown of skin; L89.013 Pressure ulcer of right elbow, stage 3; L89.023 Pressure ulcer of left elbow, stage 3 | CPT/HCPCS: 11042; 97597; A6248 ==

== ENCOUNTER → 2024-10-09 11:09 | Outpatient (BNVA) | payer MEDICARE, MEDICAID, SELFPAY | PROVIDERS: PCP Family Medicine; Visit Provider Thoracic Surgery (Cardiothoracic Vascular Surgery) | DX: I96 Gangrene, not elsewhere classified (principal); L94.0 Localized scleroderma [morphea]; L89.013 Pressure ulcer of right elbow, stage 3; L89.023 Pressure ulcer of left elbow, stage 3 | CPT/HCPCS: 99213; A6212 ==

== ENCOUNTER → 2024-10-24 08:17 | Outpatient (BNVA) | payer MEDICARE, MEDICAID, SELFPAY | PROVIDERS: PCP Family Medicine; Visit Provider Podiatrist Foot & Ankle Surgery | DX: I73.9 Peripheral vascular disease, unspecified (principal); L60.3 Nail dystrophy; L84 Corns and callosities; I73.00 Raynaud's syndrome without gangrene; M20.42 Other hammer toe(s) (acquired), left foot; L97.512 Non-pressure chronic ulcer of other part of right foot with fat layer exposed | CPT/HCPCS: 11056; 11721; 97597; 99213; A6212 ==

== ENCOUNTER → 2024-10-31 09:55 | Outpatient (BNVA) | payer MEDICARE, MEDICAID, SELFPAY | PROVIDERS: PCP Family Medicine; Visit Provider Thoracic Surgery (Cardiothoracic Vascular Surgery) | DX: L94.0 Localized scleroderma [morphea] (principal); L89.013 Pressure ulcer of right elbow, stage 3; L89.023 Pressure ulcer of left elbow, stage 3; L98.491 Non-pressure chronic ulcer of skin of other sites limited to breakdown of skin | CPT/HCPCS: 97597; A6021; A6212 ==

== ENCOUNTER → 2024-11-07 09:00 | Outpatient (BNVA) | payer MEDICARE, MEDICAID, SELFPAY | PROVIDERS: PCP Family Medicine; Visit Provider Thoracic Surgery (Cardiothoracic Vascular Surgery) | DX: L94.0 Localized scleroderma [morphea] (principal); L89.013 Pressure ulcer of right elbow, stage 3; L89.023 Pressure ulcer of left elbow, stage 3; L98.491 Non-pressure chronic ulcer of skin of other sites limited to breakdown of skin | CPT/HCPCS: 97597; A6212 ==

== ENCOUNTER 2024-11-19 10:38 | Outpatient (CLI) | payer MEDICARE, MEDICAID, SELFPAY ==
--- NOTE | 2024-11-19 10:45 | XRR_ITS ---
PROCEDURE INFORMATION: Exam: XR Left Elbow Exam date and time: 11/19/2024 10:50 AM Age: 54 years old Clinical indication: Left; Prior surgery; Surgery date: 6+ months; Surgery type: Washout surgery on elbow; Pain and tingling in elbow, HX early onset osteomyletis in elbows; Additional info: R/O osteo TECHNIQUE: Imaging protocol: Radiologic exam of the left elbow. Views: 3 or more views. Total images: 3 COMPARISON: CR XR elbow LT min 3V* [id number] 08/30/2024 10:34 AM FINDINGS: Bones/joints: Osteophyte extending from lateral aspect of proximal ulna unchanged. Irregularity of left radial head consistent with remote healed fracture. No acute fracture nor subluxation. No osseous erosion nor periosteal reaction. Soft tissues: Normal. XR/XR elbow LT min 3V* [id number] IMPRESSION: No acute osseous pathology.
[2024-11-19 11:23] LABS: Basophils % 0.2 %; Eosinophils % 0.4 %; Hematocrit 42.9 % (36-47); Lymphocytes # 1.5 10^3/uL (0.8-4.8); Lymphocytes % 17.1 %; Mean Corpuscular HGB Conc 31.2 g/dL (30-55); Mean Corpuscular Hemoglobin 29.6 pg (27-33); Mean Corpuscular Volume 94.9 fl (85-98); Mean Platelet Volume 8.8 fL (7.4-10.4); Monocytes # 0.9 10^3/uL (0.2-0.9); Monocytes % 10.1 %; Nucleated Red Blood Cells % 0 %; Platelet Count 262 10^3/cmm (157-399); Red Blood Count 4.52 10^6/uL (3.85-5.65); Red Cell Distribution Width 14.6 % (12.1-15.1)
[2024-11-19 11:46] LABS: Anion Gap 14.5 (5-19); Blood Urea Nitrogen 8 mg/dL (6-20); C Reactive Protein 14.5 mg/L (0.0-4.9); Calcium 8.9 mg/dL (8.5-10.5); Carbon Dioxide 26 mmol/L (22-29); Chloride 102 mmol/L (98-107); Glucose 89 mg/dL (65-115); Osmolality Calculated 286 mOsm/kg (285-295); Potassium 3.5 mmol/L (3.5-5.1); Sodium 139 mmol/L (136-145)
== END 2024-11-19 10:39 | disposition home or self-care (01) ==
LOC: RAD 10:40
PROVIDERS: PCP Family Medicine; Visit Provider Thoracic Surgery (Cardiothoracic Vascular Surgery)
DX: M86.9 Osteomyelitis, unspecified (principal); M34.9 Systemic sclerosis, unspecified; M25.722 Osteophyte, left elbow; R93.6 Abnormal findings on diagnostic imaging of limbs
CPT/HCPCS: 73080; 80048; 85025; 86140; 97597

== ENCOUNTER → 2024-11-28 08:11 | Outpatient (BNVA) | payer MEDICARE, MEDICAID, SELFPAY | PROVIDERS: PCP Family Medicine; Visit Provider Thoracic Surgery (Cardiothoracic Vascular Surgery) | DX: L94.0 Localized scleroderma [morphea] (principal); I96 Gangrene, not elsewhere classified; L89.013 Pressure ulcer of right elbow, stage 3; L98.491 Non-pressure chronic ulcer of skin of other sites limited to breakdown of skin; Z09 Encounter for follow-up examination after completed treatment for conditions other than malignant neoplasm | CPT/HCPCS: 97597; A6021; A6212 ==

== ENCOUNTER → 2024-12-05 09:47 | Outpatient (BNVA) | payer MEDICARE, MEDICAID, SELFPAY | PROVIDERS: PCP Family Medicine; Visit Provider Thoracic Surgery (Cardiothoracic Vascular Surgery) | DX: I96 Gangrene, not elsewhere classified (principal); L94.0 Localized scleroderma [morphea]; L89.013 Pressure ulcer of right elbow, stage 3; L89.023 Pressure ulcer of left elbow, stage 3 | CPT/HCPCS: 97597; A6021; A6212; A6248 ==

== ENCOUNTER → 2024-12-12 09:55 | Outpatient (BNVA) | payer MEDICARE, MEDICAID, SELFPAY | PROVIDERS: PCP Family Medicine; Visit Provider Thoracic Surgery (Cardiothoracic Vascular Surgery) | DX: L94.0 Localized scleroderma [morphea] (principal); I96 Gangrene, not elsewhere classified; L89.013 Pressure ulcer of right elbow, stage 3; L89.023 Pressure ulcer of left elbow, stage 3 | CPT/HCPCS: 97597; A6212 ==

== ENCOUNTER → 2024-12-19 09:05 | Outpatient (BNVA) | payer MEDICARE, MEDICAID, SELFPAY | PROVIDERS: PCP Family Medicine | DX: I96 Gangrene, not elsewhere classified (principal); L94.0 Localized scleroderma [morphea]; L89.013 Pressure ulcer of right elbow, stage 3; L89.023 Pressure ulcer of left elbow, stage 3 | CPT/HCPCS: 97597; A6021; A6212 ==

== ENCOUNTER → 2024-12-26 09:54 | Outpatient (BNVA) | payer MEDICARE, MEDICAID, SELFPAY | PROVIDERS: PCP Family Medicine; Visit Provider Thoracic Surgery (Cardiothoracic Vascular Surgery) | DX: I96 Gangrene, not elsewhere classified (principal); L94.0 Localized scleroderma [morphea]; L89.013 Pressure ulcer of right elbow, stage 3; L89.023 Pressure ulcer of left elbow, stage 3; L98.491 Non-pressure chronic ulcer of skin of other sites limited to breakdown of skin | CPT/HCPCS: 11056; 11721; 97597; 99214 ==

== ENCOUNTER → 2025-01-09 10:01 | Outpatient (BNVA) | payer MEDICARE, MEDICAID, SELFPAY | PROVIDERS: PCP Family Medicine; Visit Provider Thoracic Surgery (Cardiothoracic Vascular Surgery) | DX: L94.0 Localized scleroderma [morphea] (principal); L89.013 Pressure ulcer of right elbow, stage 3; L89.023 Pressure ulcer of left elbow, stage 3; L98.491 Non-pressure chronic ulcer of skin of other sites limited to breakdown of skin | CPT/HCPCS: 97597; A6197 ==

== ENCOUNTER → 2025-01-22 10:26 | Outpatient (BNVA) | payer MEDICARE, MEDICAID, SELFPAY | PROVIDERS: PCP Family Medicine; Visit Provider Thoracic Surgery (Cardiothoracic Vascular Surgery) | DX: L94.0 Localized scleroderma [morphea] (principal); L89.013 Pressure ulcer of right elbow, stage 3; L89.023 Pressure ulcer of left elbow, stage 3; L98.491 Non-pressure chronic ulcer of skin of other sites limited to breakdown of skin | CPT/HCPCS: 97597; A6197; A6212; A6248 ==

== ENCOUNTER → 2025-01-28 09:25 | Outpatient (BNVA) | payer MEDICARE, MEDICAID, SELFPAY | PROVIDERS: PCP Family Medicine; Visit Provider Thoracic Surgery (Cardiothoracic Vascular Surgery) | DX: I96 Gangrene, not elsewhere classified (principal); L94.0 Localized scleroderma [morphea]; L89.013 Pressure ulcer of right elbow, stage 3; L89.023 Pressure ulcer of left elbow, stage 3; L98.491 Non-pressure chronic ulcer of skin of other sites limited to breakdown of skin | CPT/HCPCS: 97597; A6021 ==

== ENCOUNTER → 2025-02-04 10:27 | Outpatient (BNVA) | payer MEDICARE, MEDICAID, SELFPAY | PROVIDERS: PCP Family Medicine; Visit Provider Thoracic Surgery (Cardiothoracic Vascular Surgery) | DX: I96 Gangrene, not elsewhere classified (principal); L94.0 Localized scleroderma [morphea]; L89.013 Pressure ulcer of right elbow, stage 3; L89.023 Pressure ulcer of left elbow, stage 3; L98.491 Non-pressure chronic ulcer of skin of other sites limited to breakdown of skin | CPT/HCPCS: 97597; A6021; A6212 ==

== ENCOUNTER → 2025-02-18 11:17 | Outpatient (BNVA) | payer MEDICARE, MEDICAID, SELFPAY | PROVIDERS: PCP Family Medicine; Visit Provider Thoracic Surgery (Cardiothoracic Vascular Surgery) | DX: I96 Gangrene, not elsewhere classified (principal); L94.0 Localized scleroderma [morphea]; L89.013 Pressure ulcer of right elbow, stage 3; L89.023 Pressure ulcer of left elbow, stage 3; L98.491 Non-pressure chronic ulcer of skin of other sites limited to breakdown of skin | CPT/HCPCS: 11042; 97597; A6210 ==

== ENCOUNTER → 2025-02-27 07:57 | Outpatient (BNVA) | payer MEDICARE, MEDICAID, SELFPAY | PROVIDERS: PCP Family Medicine; Visit Provider Thoracic Surgery (Cardiothoracic Vascular Surgery) | DX: L60.3 Nail dystrophy (principal); I73.9 Peripheral vascular disease, unspecified; L84 Corns and callosities; L94.0 Localized scleroderma [morphea]; L89.013 Pressure ulcer of right elbow, stage 3; L98.491 Non-pressure chronic ulcer of skin of other sites limited to breakdown of skin; L89.023 Pressure ulcer of left elbow, stage 3; I73.00 Raynaud's syndrome without gangrene; M20.42 Other hammer toe(s) (acquired), left foot | CPT/HCPCS: 11056; 11721; 97597; 99213 ==

== ENCOUNTER → 2025-03-25 11:02 | Outpatient (BNVA) | payer MEDICARE, MEDICAID, SELFPAY | PROVIDERS: PCP Family Medicine; Visit Provider Thoracic Surgery (Cardiothoracic Vascular Surgery) | DX: I96 Gangrene, not elsewhere classified (principal); M34.89 Other systemic sclerosis; L89.013 Pressure ulcer of right elbow, stage 3; L89.023 Pressure ulcer of left elbow, stage 3; L89.153 Pressure ulcer of sacral region, stage 3 | CPT/HCPCS: 97597; A6250 ==

== ENCOUNTER → 2025-04-01 09:45 | Outpatient (BNVA) | payer MEDICARE, MEDICAID, SELFPAY | PROVIDERS: PCP Family Medicine; Visit Provider Thoracic Surgery (Cardiothoracic Vascular Surgery) | DX: M34.89 Other systemic sclerosis (principal); L89.013 Pressure ulcer of right elbow, stage 3; L89.023 Pressure ulcer of left elbow, stage 3; L89.153 Pressure ulcer of sacral region, stage 3 | CPT/HCPCS: 97597 ==

== ENCOUNTER 2025-04-08 11:48 | Outpatient (CLI) | payer MEDICARE, MEDICAID, SELFPAY ==
--- NOTE | 2025-04-08 11:52 | XRR_ITS ---
PROCEDURE INFORMATION: Exam: XR Left Hand Exam date and time: 04/08/2025 11:59 AM Age: 54 years old Clinical indication: Other: Red/warmth/swollen; Prior surgery; Surgery date: 6+ months; Surgery type: HX of amputations; Additional info: Red/warmth/swollen digit, attn 3rd digit TECHNIQUE: Imaging protocol: Radiologic exam of the left hand. Views: 3 or more views. COMPARISON: 1. CR XR finger LT min 2V [id number] 05/29/2024 11:56 AM 2. CR XR hand LT 2V [id number] 02/08/2024 10:05 AM FINDINGS: Bones/joints: There has been previous amputation of the 4th and 5th digits at the proximal metacarpal. There has been previous amputation of the distal aspect of the left 3rd finger at the proximal aspect of the middle phalanx. There has been previous amputation of the index finger at the distal aspect of the proximal phalanx. Since prior exams, there is decreasing soft tissue thickness overlying the amputated stump of the 3rd middle phalanx. Some lucency in the overlying soft tissues in this location may suggest exposed bone. A focal osseous lesion is not identified. Moderate soft tissue swelling surrounds the 3rd PIP joint. The amputated appearance of the index finger is unremarkable. Marked sclerotic density persists in the lunate, compatible with avascular necrosis. Soft tissues: See Bones/joints finding. XR/XR hand LT min 3V* [id number] IMPRESSION: Decreasing soft tissue thickness overlying the amputated stump of the 3rd middle phalanx. Although no plain radiograph evidence of osteomyelitis is noted, if bone is exposed through the soft tissues, osteomyelitis is likely.
== END 2025-04-08 11:49 | disposition home or self-care (01) ==
LOC: RAD 11:50
PROVIDERS: PCP Family Medicine; Visit Provider Thoracic Surgery (Cardiothoracic Vascular Surgery)
DX: M86.9 Osteomyelitis, unspecified (principal); I73.00 Raynaud's syndrome without gangrene
CPT/HCPCS: 73130; 97597

== ENCOUNTER → 2025-04-15 10:17 | Outpatient (BNVA) | payer MEDICARE, MEDICAID, SELFPAY | PROVIDERS: PCP Family Medicine; Visit Provider Thoracic Surgery (Cardiothoracic Vascular Surgery) | DX: I96 Gangrene, not elsewhere classified (principal); L94.0 Localized scleroderma [morphea]; L89.013 Pressure ulcer of right elbow, stage 3; L89.023 Pressure ulcer of left elbow, stage 3; L89.153 Pressure ulcer of sacral region, stage 3 ==

== ENCOUNTER 2025-04-22 11:18 | Outpatient (CLI) | payer MEDICARE, MEDICAID, SELFPAY ==
--- NOTE | 2025-04-22 11:23 | XR_ITS ---
WS: [id number] Left foot, 3 views, 04/22/2025 Clinical Data: s/sx of infection, chronic wounds Comparison: Left foot, 07/10/2024 Findings: The left first and second toes have been amputated. Left second toe has been amputated since the last examination. No fractures or dislocations are seen. The soft tissues are normal. There is no bone destruction or erosion. The remainder of the left foot shows no abnormalities. XR/XR foot LT min 3V* [id number] Impression: Amputation of left first and second toes.
[2025-04-22 11:42] LABS: Hematocrit 33.1 % (36-47); Hemoglobin 10.50 g/dL (11.27-16.99); Mean Corpuscular HGB Conc 31.7 g/dL (30-55); Mean Corpuscular Hemoglobin 28.7 pg (27-33); Mean Corpuscular Volume 90.4 fl (85-98); Nucleated Red Blood Cells % 0 %; Platelet Count 357 10^3/cmm (157-399); Red Blood Count 3.66 10^6/uL (3.85-5.65); White Blood Count 6.21 10^3/uL (3.29-11.43)
[2025-04-22 12:01] LABS: Alanine Aminotransferase 13 U/L (0-33); Albumin Level 2.7 g/dL (3.5-5.2); Alkaline Phosphatase 69 U/L (35-105); Anion Gap 14.8 (5-19); Aspartate Amino Transferase 20 U/L (0-32); Blood Urea Nitrogen 8 mg/dL (6-20); Calcium 8.1 mg/dL (8.5-10.5); Carbon Dioxide 20 mmol/L (22-29); Chloride 104 mmol/L (98-107); Globulin 3.0 g/dL (1.3-4.6); Glucose 89 mg/dL (65-115); Osmolality Calculated 280 mOsm/kg (285-295); Prealbumin 9.1 mg/dL (20-40); Sodium 136 mmol/L (136-145); Total Protein 5.7 g/dL (6.6-8.7)
[2025-04-22 13:24] LABS: Potassium 2.8 mmol/L (3.5-5.1)
== END 2025-04-22 11:19 | disposition home or self-care (01) ==
PROVIDERS: PCP Family Medicine; Visit Provider Thoracic Surgery (Cardiothoracic Vascular Surgery)
DX: L98.491 Non-pressure chronic ulcer of skin of other sites limited to breakdown of skin (principal); L98.492 Non-pressure chronic ulcer of skin of other sites with fat layer exposed; I73.00 Raynaud's syndrome without gangrene; Z89.422 Acquired absence of other left toe(s)
CPT/HCPCS: 36415; 73630; 80053; 84134; 85025; 85651; 86140; 97597; A6212

== ENCOUNTER 2025-04-24 07:04 | Outpatient (CLI) | payer MEDICARE, MEDICAID, SELFPAY ==
--- NOTE | 2025-04-24 07:15 | MR_ITS ---
WS: [id number] MRI of the hand without and with gadolinium enhancement INDICATION: Increased swelling and redness to third digit TECHNIQUE: Axial T1 and T2 coronal T1 STIR sagittal T2 fat multiplanar post gadolinium imaging with fat saturation technique FINDINGS: Prior amputation of the fourth and fifth digits at the proximal metacarpal. Amputation of the distal aspect of the LEFT third finger at the proximal middle phalanx. Previous amputation index finger distal proximal phalanx. Diffuse replacement of the normal bone marrow signal involving the lunate compatible with avascular necrosis. Decreased T1 and increased T2 signal involving the residual third middle phalanx at the site of amputation. Associated enhancement with soft tissue edema and enhancement. Findings compatible with osteomyelitis involving the residual third middle phalanx. Normal bone marrow signal in the third proximal phalanx. MR/MR hand LT wo/w con [id number] IMPRESSION: 1. Findings compatible with osteomyelitis involving the residual third middl e phalanx at the site of amputation. 2. Avascular necrosis involving the lunate.
[2025-04-24] MEDS: gadobenate dimeglumine 20 mL vial 12 ML IV (09:08)
== END 2025-04-24 07:05 | disposition home or self-care (01) ==
LOC: RAD 07:04
PROVIDERS: PCP Family Medicine; Visit Provider Thoracic Surgery (Cardiothoracic Vascular Surgery)
DX: L98.491 Non-pressure chronic ulcer of skin of other sites limited to breakdown of skin (principal); M87.9 Osteonecrosis, unspecified
CPT/HCPCS: 73220

== ENCOUNTER 2025-04-24 07:39 | Oncology outpatient (recurring) (ONCR) | payer MEDICARE, MEDICAID, SELFPAY | END 2025-05-04 23:59 | disposition home or self-care (01) | PROVIDERS: PCP Family Medicine; Visit Provider Internal Medicine | DX: L97.512 Non-pressure chronic ulcer of other part of right foot with fat layer exposed (principal); L60.3 Nail dystrophy; L84 Corns and callosities; I73.00 Raynaud's syndrome without gangrene; M20.42 Other hammer toe(s) (acquired), left foot; I73.9 Peripheral vascular disease, unspecified | CPT/HCPCS: 99213 ==

== ENCOUNTER 2025-05-15 12:47 | Outpatient (CLI) | payer MEDICARE, MEDICAID, SELFPAY ==
--- NOTE | 2025-05-15 12:52 | XRR_ITS ---
PROCEDURE INFORMATION: Exam: XR Left Foot Exam date and time: 05/15/2025 12:58 PM Age: 54 years old Clinical indication: Pain; Foot; Left; Additional info: L98.491 - non-pressure chronic ulcer of skin of other sit. . . , Attn: 3rd/4th digit and 5th met head. R/O osteo TECHNIQUE: Imaging protocol: Radiologic exam of the left foot. Views: 3 or more views. COMPARISON: CR XR foot LT min 3V* [id number] 04/22/2025 11:29 AM FINDINGS: Bones/joints: Status post amputation of the 1st and 2nd digits of the left foot. This appears stable compared with 04/22/2025. There is increased soft tissue density that overlies the metatarsophalangeal joints of the 3rd through 5th digits. Soft tissues: Normal. XR/XR foot LT min 3V* [id number] IMPRESSION: 1. There are no acute osseous findings. 2. Soft tissue swelling overlies the 3rd through 5th metatarsophalangeal joints.
== END 2025-05-15 12:48 | disposition home or self-care (01) ==
LOC: RAD 12:49
PROVIDERS: PCP Family Medicine; Visit Provider Thoracic Surgery (Cardiothoracic Vascular Surgery)
DX: L98.491 Non-pressure chronic ulcer of skin of other sites limited to breakdown of skin (principal); Z89.422 Acquired absence of other left toe(s); Z89.412 Acquired absence of left great toe; M79.89 Other specified soft tissue disorders
CPT/HCPCS: 11043; 73630; 97597

== ENCOUNTER 2025-05-20 13:56 | Outpatient (CLI) | payer MEDICARE, MEDICAID, SELFPAY ==
--- NOTE | 2025-05-20 14:00 | USR_ITS ---
PROCEDURE INFORMATION: Exam: US Duplex Left Lower Extremity Arteries Or Arterial Bypass Grafts Exam date and time: 05/20/2025 2:07 PM Age: 54 years old Clinical indication: Pain; Toes; Left; Additional info: Chronic wound to L foot TECHNIQUE: Imaging protocol: Left Real-time duplex scan of the arteries or arterial bypass grafts of the left lower extremity with 2-D knapp scale, color Doppler flow and spectral waveform analysis. Images documented and saved. COMPARISON: CR XR foot LT min 3V* [id number] 05/15/2025 12:58 PM FINDINGS: Left common femoral artery: No occlusion or significant stenosis. Normal waveform. Left superficial femoral artery: No occlusion or significant stenosis. Monophasic waveform. Left popliteal artery: No occlusion or significant stenosis. Monophasic waveform. Left calf/foot arteries: No occlusion or significant stenosis in the posterior tibial artery. Monophasic waveforms in the posterior tibial and dorsalis pedis arteries. Dorsalis pedis artery [place] patent. US/[place] [id number] IMPRESSION: No significant stenosis or occlusion. Monophasic waveforms as above.
== END 2025-05-20 13:57 | disposition home or self-care (01) ==
LOC: RAD 13:57
PROVIDERS: PCP Family Medicine; Visit Provider Thoracic Surgery (Cardiothoracic Vascular Surgery)
DX: L97.512 Non-pressure chronic ulcer of other part of right foot with fat layer exposed (principal); I73.00 Raynaud's syndrome without gangrene; R94.31 Abnormal electrocardiogram [ECG] [EKG]; I70.202 Unspecified atherosclerosis of native arteries of extremities, left leg
CPT/HCPCS: 93926; 97597

== ENCOUNTER → 2025-05-27 11:26 | Outpatient (BNVA) | payer MEDICARE, MEDICAID, SELFPAY | PROVIDERS: PCP Family Medicine; Visit Provider Student in an Organized Health Care Education/Training Program | DX: M86.9 Osteomyelitis, unspecified (principal); M34.9 Systemic sclerosis, unspecified; I73.9 Peripheral vascular disease, unspecified; I73.00 Raynaud's syndrome without gangrene | CPT/HCPCS: 99205 ==

== ENCOUNTER 2025-06-02 07:03 | Day surgery (SDC) | payer MEDICARE, MEDICAID, SELFPAY ==
[2025-06-02] VITALS (8 sets, daily range): BP systolic 113–150; BP diastolic 65–79; PULSE 80–97; RESP 14–18; TEMP 36.2–36.8; O2SAT 97–100; BMI 18.2
--- NOTE | 2025-06-02 07:50 | ANES.PREANE2 ---
Pre-Anesthetic Assessment Height/Weight: Height 5 ft 8 in Weight 120 lb Temp Pulse Resp BP Pulse Ox O2 Del Method 97.5 F L 97 18 132/67 97 Room Air 06/02/25 07:30 06/02/25 07:30 06/02/25 07:30 06/02/25 07:30 06/02/25 07:30 06/02/25 07:30 Preop Diagnosis: Osteomyelitis Operation Date: 06/02/25 08:40 Proposed Procedures p Left foot transmetatarsal amputation(Left) - VISHNU MccormackM Was Beta Trinidad taken within 24 hours: N/A Was Clonidine taken within 24 hours: N/A Last intake: Intake Last Liquid Date 06/01/25 Last Liquid Time 23:45 Last Solid Date 06/01/25 Last Solid Time 12:00 Social No alcohol and No tobacco Quit smoking 4 weeks ago, has smoked most of her life Exam alert and oriented x 3 Decreased breath sounds bilaterally Airway Cervical ROM: within normal limits Mallampati: Class III Dentition: false Comments: Comments: Smaller mouth opening Anesthetic Plan ASA status: 4 Anesthesia: MAC Other: No prior issues with anesthesia Patient recently had PCI in March. Currently on Plavix, last taken today. Discussed with patient that we would normally wait at least 6 months for elective procedure before undergoing anesthesia. However, after discussions with surgeon, I understand this needs to be performed sooner than later. Patient recently had a hand procedure done without issues History of GERD on Protonix Severe PAD history, patient has a port in place for this. She states this was used 2 weeks ago Labs from 04/22/2025 reviewed. K+ 2.8 at that time. Repeat labs pending Plan for MAC anesthesia with local via surgeon Medications/Allergies Home Medications ?Medication ?Instructions ?Recorded ?Confirmed ?Last Taken ?Type albuterol sulfate 90 mcg/actuation 90 mcg inhalation PRN Asthma/ 07/11/24 05/27/25 Unknown History aerosol inhaler Shortness of breath brexpiprazole 2 mg tablet (Rexulti) 2 mg PO 1XD 07/11/24 06/02/25 06/02/25 History cilostazol 100 mg tablet 100 mg PO 2XD 07/11/24 05/30/25 06/02/25 History colestipol 1 gram tablet 1 g PO BID high cholesterol 07/11/24 05/30/25 06/02/25 History ergocalciferol (vitamin D2) 1,250 1,250 mcg PO UNK vit 07/11/24 05/30/25 05/25/25 History mcg (50,000 unit) capsule (Vitamin D2) gabapentin 300 mg capsule 300 mg PO QID 07/11/24 05/30/25 05/30/25 History mupirocin 2 % topical ointment 2 applic topical 3XD PRN sores 07/11/24 05/30/25 07/11/24 History mycophenolate mofetil 500 mg tablet 1,500 mg PO 2XD 07/11/24 05/30/25 05/30/25 History nintedanib 150 mg capsule (Ofev) 150 mg PO 2XD 07/11/24 05/30/25 06/02/25 History oxycodone 15 mg tablet 15 mg PO PRN PRN Pain 07/11/24 06/02/25 06/02/25 History oxycodone 20 mg tablet,crush 20 mg PO 2XD 07/11/24 06/02/25 06/02/25 History resistant,extended release 12 hr (OxyContin) pantoprazole 40 mg tablet,delayed 40 mg PO 2XD 07/11/24 06/02/25 06/02/25 History release paroxetine HCl 30 mg tablet 30 mg PO 1XD 07/11/24 05/30/25 06/02/25 History pentoxifylline 400 mg 400 mg PO 3XD 07/11/24 06/02/25 06/02/25 History tablet,extended release trazodone 50 mg tablet 100 mg PO 1XD 07/11/24 06/02/25 06/01/25 History aspirin 81 mg tablet,delayed 81 mg PO DAILY 05/30/25 05/30/25 06/02/25 History release clopidogrel 75 mg tablet (Plavix) 75 mg PO DAILY 05/30/25 05/30/25 06/02/25 History Allergies Allergy/AdvReac Type Severity Reaction Status Date / Time ceftriaxone (From Rocephin) Allergy ALGY-Rash Verified 06/02/25 07:17 piperacillin (From Zosyn) Allergy ALGY-Rash Verified 06/02/25 07:17 tazobactam (From Zosyn) Allergy ALGY-Rash Verified 06/02/25 07:17 vancomycin Allergy ALGY-Rash Verified 06/02/25 07:17 [facility] Anesthesia Social History Smoking and tobacco/nicotine status: former use of tobacco/nicotine Data Anesthesia 06/02/25 08:30 06/02/25 08:30
[2025-06-02 08:44] LABS: Hematocrit 29.9 % (36-47); Hemoglobin 9.60 g/dL (11.27-16.99); Mean Corpuscular HGB Conc 32.1 g/dL (30-55); Mean Corpuscular Hemoglobin 29.7 pg (27-33); Mean Corpuscular Volume 92.6 fl (85-98); Nucleated Red Blood Cells % 0 %; Platelet Count 274 10^3/cmm (157-399); Red Blood Count 3.23 10^6/uL (3.85-5.65); White Blood Count 5.37 10^3/uL (3.29-11.43)
[2025-06-02 09:06] LABS: Anion Gap 13.6 (5-19); Blood Urea Nitrogen 5 mg/dL (6-20); Calcium 8.2 mg/dL (8.5-10.5); Carbon Dioxide 25 mmol/L (22-29); Chloride 101 mmol/L (98-107); Creatinine Clr Calc Pharmacy 208.1670; Glucose 72 mg/dL (65-115); Osmolality Calculated 278 mOsm/kg (285-295); Potassium 3.6 mmol/L (3.5-5.1); Sodium 136 mmol/L (136-145)
--- NOTE | 2025-06-02 09:07 | P.HPUD_ITS ---
Surgery/Procedure H&P Update DATE OF PROCEDURE: June 02, 2025 DATE H&P PERFORMED: 05/27/25 H&P UPDATE INFORMATION: I have reviewed H&P completed within last 30 days, I have examined patient prior to procedure, No changes to prior documentation, H&P is in [facility] EMR on date indicated and Risks and benefits of the procedure reviewed PREOP DIAGNOSIS: Osteomyelitis PLANNED PROCEDURE: Operation Date: 06/02/25 08:40 Proposed Procedures p Left foot transmetatarsal amputation(Left) - Vinay Soto DPM
[2025-06-02] MEDS: BUPivacaine 0.5% INJ 30 mL XX (09:50)
--- NOTE | 2025-06-02 10:26 | W.PM.BPON ---
Date of procedure: 06/02/2025 Surgeon name: Dr. Vinay Soto D.P.M. Neurology Technologist(s) name(s): Conrad Procedure(s) performed: Left foot third, fourth toe amputation, partial fifth ray resection Description of findings: Osteomyelitis fifth metatarsal head as well as full-thickness ulcerations down to level of bone of 3rd and 4th digits Estimated blood loss: 5 cc Tourniquet time: No tourniquet used Specimen(s) removed: 1. Third, fourth, fifth toes left foot 2. Fifth metatarsal head bone culture 3. Fifth metatarsal proximal margin Post-operative diagnosis: Osteomyelitis
--- NOTE | 2025-06-02 10:27 | P.OP_ITS ---
Operative Report Date of procedure: June 02, 2025 Surgeon: Vinay Soto DPM Procedure: Date of procedure: 06/02/2025 Pre-op diagnosis: Osteomyelitis left foot Post-op diagnosis: Same Post-op findings: Degenerative changes consistent with osteomyelitis of fifth metatarsal head. Osteomyelitis left foot third digit proximal interphalangeal joint Procedure done: 1. Left foot third digit amputation CPT 68337 2. Left foot fourth digit amputation CPT 60356 3. Left foot partial fifth ray resection CPT 26475 Implants: None Specimens removed: Third fourth fifth digits left foot as well as fifth metatarsal head left foot Surgeon: Dr. Vinay Soto DPM Office Automation Clerk: Conrad Estimated blood loss: 5 cc Tourniquet time: No tourniquet used Complications: None Patient is a 54-year-old female that has a history of chronic ulcerations, severe PAD, underlying osteomyelitis. The patient has had the aforementioned chief complaint for some time. Conservative treatment measures have been attempted and the patient has opted for surgical intervention at this time. A lengthy discussion regarding the procedure, including risks and complications has been had with the patient and is noted in the recent clinic note. Written and verbal consent have been obtained. All patient questions have been answered to the patient?s satisfaction. No written or verbal guarantees have been given or implied. The patient has been NPO since midnight. The history has been reviewed and the history and physical is current. The signed consent was confirmed and placed in the patient chart. Patient imaging has been reviewed and is consistent with the diagnosis. Under mild sedation, the patient was brought into the operating room and placed on the table in the supine position. IV antibiotics were given by the anesthesia team as preoperative surgical prophylaxis. MAC sedation was then performed by the anesthesiateam. A local field block was performed using 0.5% Marcaine plain. A pneumatic tourniquet was applied to the left ankle but was no t inflated. The left lower extremity was prepped and draped in standard fashion. The following procedure was then performed. Attention was directed to the left foot. Elliptical incision was made at the base of the 3rd and 4th digits using a #15 blade. Dissection was carried down to the level of the metatarsophalangeal joint. 3rd and 4th digits were then removed from the foot passed from the operative field be sent to specimen. These were then sequentially irrigated with sterile saline before being closed using 3-0 nylon in simple interrupted fashion. Hemostasis was achieved prior to closure. Attention was then directed to the fifth metatarsal phalangeal joint. Full-thickness ulceration to lateral aspect of fifth metatarsal head was noted. Fifth digit was incised at the level of the fifth metatarsal phalangeal joint using #15 blade. The digit was disarticulated and passed from the operative field to send a specimen. Fifth metatarsal head was evaluated and noted to be discolored with signs of degeneration consistent with osteomyelitis. Sagittal bone saw was used to resect the head of the fifth metatarsal. This was passed from the operative field to send a specimen. Remaining bone appeared healthy and viable. Proximal margin appeared healthy and viable. Site was irrigated with sterile saline. Incision was then closed using 3-0 nylon in simple interrupted fashion. Incision sites were dressed with Xeroform, 4 4 gauze, Kerlix, Marqiuse. The patient tolerated the procedure and anesthesia well and without complication. The patient was transported from the operating room to the recovery room with vital signs stable and vascular status intact to the left foot. The patient was given both written and verbal instructions to remain minimal weightbearing in postop shoe to the operative extremity, to keep dressings/splint clean, dry and intact and to take pain medication as directed. The patient will follow-up in the outpatient setting at their scheduled appointment. The patient was discharged with my personal number and was instructed to call if any questions or issues should arise. They were discharged home once anesthesia criteria was met.
--- NOTE | 2025-06-02 11:07 | ANE.PACU2 ---
Inpatient post-anesthesia follow up: Airway intact: Yes Vital signs: Temperature 97.1 F Pulse Rate 97 Respiratory Rate 15 Blood Pressure 150/72 Pulse Oximetry 100 Oxygen Delivery Me thod Room Air Oxygen Flow Rate 10 Fraction of Inspir ed Oxygen Hydration adequate: Yes Nausea and vomiting: No Pain level: 1 Mental status: Baseline
== END 2025-06-02 12:05 | disposition home or self-care (01) ==
PROVIDERS: Student in an Organized Health Care Education/Training Program; PCP Family Medicine; Visit Provider Podiatrist Foot & Ankle Surgery
PROC: (CPT 28810; principal; 2025-06-02 08:30)
DX: M86.8X7 Other osteomyelitis, ankle and foot (principal); K21.9 Gastro-esophageal reflux disease without esophagitis; I73.9 Peripheral vascular disease, unspecified; Z79.891 Long term (current) use of opiate analgesic; Z79.82 Long term (current) use of aspirin; Z87.891 Personal history of nicotine dependence
CPT/HCPCS: 28810; 28820 ×2; 36415; 80048; 85025; 87070; 87075; 87205; 88305; 88307; 88311; J1642; J2250; J2704; J3010; J3490; J7030; J9999

== ENCOUNTER → 2025-06-03 10:56 | Outpatient (BNVA) | payer MEDICARE, MEDICAID, SELFPAY | PROVIDERS: PCP Family Medicine; Visit Provider Thoracic Surgery (Cardiothoracic Vascular Surgery) | DX: I96 Gangrene, not elsewhere classified (principal); L94.0 Localized scleroderma [morphea]; L89.013 Pressure ulcer of right elbow, stage 3; L89.023 Pressure ulcer of left elbow, stage 3; L98.491 Non-pressure chronic ulcer of skin of other sites limited to breakdown of skin | CPT/HCPCS: 97597; A6248 ==

== ENCOUNTER 2025-06-04 05:00 | Outpatient (CLI) | payer MEDICARE, MEDICAID, SELFPAY | END 2025-06-04 05:01 | disposition home or self-care (01) | LOC: SPT 06-12 10:36 | PROVIDERS: Visit Provider Podiatrist Foot & Ankle Surgery | DX: Z47.89 Encounter for other orthopedic aftercare (principal); S98.922 Partial traumatic amputation of left foot, level unspecified; X58.XXXD Exposure to other specified factors, subsequent encounter | CPT/HCPCS: 97597; L4361 ==

== ENCOUNTER → 2025-06-09 14:28 | Outpatient (BNVA) | payer MEDICARE, MEDICAID, SELFPAY | PROVIDERS: PCP Family Medicine; Visit Provider Podiatrist Foot & Ankle Surgery | DX: L97.512 Non-pressure chronic ulcer of other part of right foot with fat layer exposed (principal); L60.3 Nail dystrophy; L84 Corns and callosities; I73.00 Raynaud's syndrome without gangrene; M20.42 Other hammer toe(s) (acquired), left foot; I73.9 Peripheral vascular disease, unspecified; M86.9 Osteomyelitis, unspecified; M86.8X7 Other osteomyelitis, ankle and foot | CPT/HCPCS: 99024 ==

== ENCOUNTER → 2025-06-16 10:56 | Outpatient (BNVA) | payer MEDICARE, MEDICAID, SELFPAY | PROVIDERS: PCP Family Medicine; Visit Provider Thoracic Surgery (Cardiothoracic Vascular Surgery) | DX: I96 Gangrene, not elsewhere classified (principal); L94.0 Localized scleroderma [morphea]; L89.013 Pressure ulcer of right elbow, stage 3; L89.023 Pressure ulcer of left elbow, stage 3; L98.491 Non-pressure chronic ulcer of skin of other sites limited to breakdown of skin | CPT/HCPCS: 97597 ==

== ENCOUNTER → 2025-06-23 11:01 | Outpatient (BNVA) | payer MEDICARE, MEDICAID, SELFPAY | PROVIDERS: PCP Family Medicine; Visit Provider Thoracic Surgery (Cardiothoracic Vascular Surgery) | DX: L97.512 Non-pressure chronic ulcer of other part of right foot with fat layer exposed (principal); L60.3 Nail dystrophy; L84 Corns and callosities; I73.00 Raynaud's syndrome without gangrene; M20.42 Other hammer toe(s) (acquired), left foot; I73.9 Peripheral vascular disease, unspecified; M86.8X7 Other osteomyelitis, ankle and foot | CPT/HCPCS: 97597; 99024; A6021 ==

== ENCOUNTER → 2025-07-08 11:13 | Outpatient (BNVA) | payer MEDICARE, MEDICAID, SELFPAY | PROVIDERS: PCP Family Medicine; Visit Provider Thoracic Surgery (Cardiothoracic Vascular Surgery) | DX: L94.0 Localized scleroderma [morphea] (principal); I96 Gangrene, not elsewhere classified; L89.013 Pressure ulcer of right elbow, stage 3; L89.023 Pressure ulcer of left elbow, stage 3; L98.491 Non-pressure chronic ulcer of skin of other sites limited to breakdown of skin; L97.521 Non-pressure chronic ulcer of other part of left foot limited to breakdown of skin | CPT/HCPCS: 97597; A6021 ==